=== PATIENT | male | born 1960 | race Caucasian/White ===

== ENCOUNTER 2016-07-28 20:56 | Emergency (ER) | payer BC, OTHER ==
[~2016-07-28] VITALS: Ht 172.7 cm; Wt 129.0 kg
[~2016-07-28 20:56] MED LIST: ACET-1311 PO; ASPI81TA28 PO; ATOR-26 PO; LPR25 PO; MULT-513 PO; WARF-246 PO; WARF5TAB7 PO
[2016-07-28 21:00] VITALS: BP 131/78; PULSE 75; TEMP 36.5; O2SAT 96; Ht 172.7 cm; Wt 129.0 kg
[2016-07-28] MEDS ORDERED: GELATIN SPONGE 12-7MM EXT ONE (21:15)
[2016-07-28] MEDS ORDERED: DIPHTHERIA/TETANUS/PERTUSSIS 0.5 ML SYR/VIAL IM. ONE (21:15)
[2016-07-28] MEDS ORDERED: ROSU40TA PO (21:48)
[2016-07-28] MEDS ORDERED: LEVO50TA6 PO (21:48)
[2016-07-28] MEDS ORDERED: PANT40TA PO (21:48)
[2016-07-28] MEDS ORDERED: ISOS60TA25 PO (21:48)
[2016-07-28] MEDS ORDERED: PRAS1TAB6 PO (21:48)
[2016-07-28] MEDS ORDERED: SERT-234 PO (21:48)
[2016-07-28] MEDS ORDERED: ASPI-232 PO (21:48)
--- NOTE | 2016-07-28 21:50 | EMERGENCY ROOM VISIT NOTE ---
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 The bleeding has not stopped. There is no weakness or numbness of the area. Tetanus shot is dso-js-ld-date. Full range of motion of the LEFT middle. The patient rates the pain as stinging and 1/10. REVIEW OF SYSTEMS: A 6 system review of systems was completed with positives and pertinent negatives listed in the HPI. ALLERGIES: Iodinated contrast agents, penicillins MEDICATIONS: Reviewed and discussed with the patient. PMH: No pertinent past medical history. SOCIAL HISTORY: Patient is a 56-year-old male who lives locally. PHYSICAL EXAM: Vital Signs: Reviewed Nurse's notes, vital signs stable. GENERAL : 56-year-old male, in no acute distress, well-developed, well-nourished. SKIN : There is a 0.5 cm long avulsion laceration to the tip of the LEFT 3rd digit. It is superficial and the top layer of skin has been avulsed. There is no foreign material in the wound and it looks clean. There is active bleeding. No deep structures are seen in the base of the wound. Extension and flexion of the LEFT 3rd digit is full and strong. Sensation to pain and light touch is intact. EMERGENCY DEPARTMENT COURSE: I examined the patient. Verbal consent was obtained to perform the procedure. The LEFT 3rd digit was cleaned with saline and Betadine. Gelfoam was applied to the avulsion laceration and the area was dressed with a pressure dressing. The bleeding stopped. The patient tolerated the procedure well. The patient was given a tetanus booster. The patient was discharged home in stable condition. DIAGNOSIS: Avulsion laceration of the LEFT 3rd Digit DISCHARGE INSTRUCTIONS & TREATMENT: You have been treated in the Emergency Department today for your LEFT 3rd Digit Avulsion. Leave the GELFOAM and dressing in place for the next 48 hours. Keep the dressing clean and dry until time for removal. To remove the GELFOAM dressing, remove the overlying tape and then soak the wound in warm water until the piece of GELFOAM can be easily removed. Proper wound care is essential for adequate wound healing and infection prevention. You can shower and clean the wound with soap and water. Do not scour over the wound, pat dry with a towel. You can use an antibiotic ointment with a dressing/bandage over the wound for the next 3-4 days. After this time you may leave the wound dry and open to the air. Look for signs of infection of the wound including: increased pain, swelling, foul discharge, streaking, or increased temperature. If any of these are noticed you should return to the Emergency Department for further assessment and treatment. As with any laceration you may have received nerve damage to the surrounding tissues. This damage could be permanent. For pain control, you can use the following aiza-vbk-rzxhruq medicines (if >12 yo): - Regular strength (325mg/tab) Tylenol (acetaminophen) 2 tabs every 4-6 hours as needed. Do not exceed 12 tablets in a 24 hour period. Avoid taking more than 4 grams (4000 mg) of Tylenol per day. This includes any other sources of acetaminophen you may take on a regular basis. - Regular strength (200 mg/tab) Advil (ibuprofen) 1-2 tabs every 4-6 hours as needed. Do not exceed a dose of 3200 mg per day. Return to the emergency department if your symptoms worsen despite treatment course outlined above. Problem List Medical Problems: (1) Clostridium difficile infection Status: Resolved (2) Heart disease Status: Chronic (3) Hypercholesterolemia Status: Chronic Surgical Problems: (1) S/P CABG x 4 Status: Resolved Current/Historical Medications Scheduled Aspirin (Aspir-81), 1 TAB PO DAILY Isosorbide Mononitrate Ext Rel (Imdur Ext Rel), 60 MG PO QAM Levothyroxine Sodium (Levothyroxine Sodium), 1 TAB PO DAILY Pantoprazole (Protonix), 40 MG PO DAILY Prasugrel Hcl (Effient), 10 MG PO DAILY Rosuvastatin Calcium (Crestor), 40 MG PO DAILY Sertraline (Zoloft), 100 MG PO DAILY Scheduled PRN Acetaminophen (Tylenol), 650 MG PO Q6H PRN for Pain or Fever Allergies Coded Allergies: Iodinated Diagnostic Agents (Verified Allergy, Severe, "CONTRAST DYE", ) Penicillins (Verified Allergy, Unknown, UNKNOWN - GIVEN WHEN HE WAS A BABY AND HAD REACTION, 07/28/16) Vital Signs Date Time Temp Pulse Resp B/P Pulse Ox O2 Delivery O2 Flow Rate FiO2 07/28/16 21:00 36.5 75 18 131/78 96 Room Air Medications Administered Medications (Trade) Dose Ordered Sig/[place] Route Start Time Stop Time Status Last Admin Dose Admin Diphtheria/ Pertussis/Tetanus Vacc (Adacel Inj) 0.5 ml ONCE ONCE IM. 07/28/16 21:15 07/28/16 21:16 DC 07/28/16 21:15 0.5 ML Departure Information Impression Primary Impression: Avulsion of skin of finger Dispostion Home / Self-Care Condition GOOD Referrals Bharat Gonzalez D.O. (PCP) Patient Instructions ED Avulsion Dermal, ED Gelfoam Dressing, [facility] Additional Instructions You have been treated in the Emergency Department today for your LEFT 3rd Digit Avulsion. Leave the GELFOAM and dressing in place for the next 48 hours. Keep the dressing clean and dry until time for removal. To remove the GELFOAM dressing, remove the overlying tape and then soak the wound in warm water until the piece of GELFOAM can be easily removed. Proper wound care is essential for adequate wound healing and infection prevention. You can shower and clean the wound with soap and water. Do not scour over the wound, pat dry with a towel. You can use an antibiotic ointment with a dressing/bandage over the wound for the next 3-4 days. After this time you may leave the wound dry and open to the air. Look for signs of infection of the wound including: increased pain, swelling, foul discharge, streaking, or increased temperature. If any of these are noticed you should return to the Emergency Department for further assessment and treatment. As with any laceration you may have received nerve damage to the surrounding tissues. This damage could be permanent. For pain control, you can use the following inra-cew-vsanttt medicines (if >12 yo): - Regular strength (325mg/tab) Tylenol (acetaminophen) 2 tabs every 4-6 hours as needed. Do not exceed 12 tablets in a 24 hour period. Avoid taking more than 4 grams (4000 mg) of Tylenol per day. This includes any other sources of acetaminophen you may take on a regular basis. - Regular strength (200 mg/tab) Advil (ibuprofen) 1-2 tabs every 4-6 hours as needed. Do not exceed a dose of 3200 mg per day. Return to the emergency department if your symptoms worsen despite treatment course outlined above. Problem Qualifiers Primary Impression: Avulsion of skin of finger Encounter type: initial encounter Qualified Codes: S61.209A - Unspecified open wound of unspecified finger without damage to nail, initial encounter
== END 2016-07-28 22:07 | disposition home or self-care (01) ==
LOC: C.EDB 20:58 → C.EDD 22:07
DX: S61.213A Laceration without foreign body of left middle finger without damage to nail, initial encounter (principal); W26.0XXA Contact with knife, initial encounter; Z23 Encounter for immunization; E78.00 Pure hypercholesterolemia, unspecified; I51.9 Heart disease, unspecified; Z86.19 Personal history of other infectious and parasitic diseases; Z95.1 Presence of aortocoronary bypass graft; Z79.82 Long term (current) use of aspirin; Z79.899 Other long term (current) drug therapy; Z88.0 Allergy status to penicillin; Z91.041 Radiographic dye allergy status